=== PATIENT | female | born 1960 | race Caucasian/White ===

== ENCOUNTER 2017-02-17 09:30 | Emergency (ER) | payer MEDICAID ==
[~2017-02-17] VITALS: Ht 157.5 cm; Wt 55.6 kg
[2017-02-17 12:19] VITALS: BP 137/76
== END 2017-02-17 12:19 | disposition home or self-care (01) ==
LOC: ED 09:30
DX: M75.31 Calcific tendinitis of right shoulder (principal); E11.9 Type 2 diabetes mellitus without complications
CPT/HCPCS: J1100; J1885